=== PATIENT | female | born 1930 | race Hispanic/Latino ===

== ENCOUNTER 2017-06-09 07:06 | Emergency (ER) | payer MEDICARE, OTHER ==
[2017-06-09 07:12] VITALS: BP 142/73; PULSE 81; RESP 16; TEMP 96; O2SAT 100
[2017-06-09 07:13] VITALS: BMI 23.4
[2017-06-09] MEDS ORDERED: ceFAZolin IV 1 gm in Dextrose 1 GM/50 ML BAG IVPB ONE (07:42)
--- NOTE | 2017-06-09 07:46 | ED PDOC ---
HPI: Skin/Bite Injury Time Seen by Provider: 06/09/17 07:21 Chief Complaint (Nursing): Breast Problem Chief Complaint (Provider): Left Breast Bleeding History Per: Family (patient's daughter) History/Exam Limitations: no limitations Current Symptoms Are (Timing): Still Present Additional Complaint(s): Jacque Bowers is an 87 year old female that was diagnosed with breast cancer in December 2016 for which she is not undergoing any treatment that presents to the ED with a chief complaint of bleeding from her left breast that began this morning, as reported by the patient's daughter. Patient denies history of trauma or any other complaints. Past Medical History Reviewed: Historical Data, Nursing Documentation, Vital Signs Vital Signs: Last Vital Signs Temp 96.0 F L 06/09/17 07:11 Pulse 81 06/09/17 07:11 Resp 16 06/09/17 07:11 BP 142/73 06/09/17 07:11 Pulse Ox 100 06/09/17 11:22 - Medical History PMH: Anxiety, Arthritis, Atrial Fibrillation, Dementia, Depression, Gall Bladder Disease, GERD, Pneumonia Other PMH: Breast CA - Surgical History Surgical History: Cholecystectomy - Family History Family History: States: Unknown Family Hx - Immunization History Hx Tetanus Toxoid Vaccination: No Hx Influenza Vaccination: No Hx Pneumococcal Vaccination: No - Home Medications Home Medications: Ambulatory Orders Medication Instructions Recorded LORazepam [Ativan] 1 mg PO TID 09/12/16 Memantine [Namenda] 10 mg PO DAILY 09/12/16 Omeprazole Magnesium [Prilosec] 20 mg PO DAILY 09/12/16 Sertraline HCl [Zoloft] 25 mg PO DAILY 09/12/16 [id number] CD [Cardizem CD] 240 mg PO DAILY 09/12/16 Cephalexin [cephalexin] 500 mg PO QID #28 cap 06/09/17 - Allergies Allergies/Adverse Reactions: Allergies Allergy/AdvReac Type Severity Reaction Status Date / Time codeine Allergy NAUSEA Verified 06/09/17 07:27 flu vaccine Allergy COUGH Uncoded 04/13/16 10:24 Review of Systems Skin: Positive for: Other (bleeding from left breast) Physical Exam - Reviewed Nursing Documentation Reviewed: Yes Vital Signs Reviewed: Yes - Physical Exam Appears: Positive for: Non-toxic, No Acute Distress Head Exam: Positive for: ATRAUMATIC, NORMOCEPHALIC Skin: Positive for: Normal Color, Warm Eye Exam: Positive for: Normal appearance, EOMI, PERRL Cardiovascular/Chest: Positive for: Regular Rate, Rhythm, Other (Patient has orange-sized tumor, medial left breast. 2x2 open area wound, no active bleeding. ). Negative for: Murmur Respiratory: Positive for: Normal Breath Sounds. Negative for: Wheezing Gastrointestinal/Abdominal: Positive for: Normal Exam, Soft. Negative for: Tenderness Back: Positive for: Normal Inspection Extremity: Positive for: Normal ROM. Negative for: Deformity, Swelling Neurologic/Psych: Positive for: Alert, Oriented (x0, patient's family member says this is normal for the patient). Negative for: Motor/Sensory Deficits - Laboratory Results Result Diagrams: 06/09/17 07:40 06/09/17 07:40 - ECG O2 Sat by Pulse Oximetry: 100 (RA) Pulse Ox Interpretation: Normal Medical Decision Making Medical Decision Making: Impression: Left Breast Hematoma Plan: * Ancef 1gm/100 mL NS * CMP * CBC * Blood Culture * Reevaluation 9:30 Patient is complaining of lower back pain, X-Ray Lumbar Spine ordered. Lumbar Spine X-Ray FINDINGS: BONES: Normal alignment. No listhesis. No fracture. DISC SPACES: Gross facet joint degenerative changes are appreciated manifest by diffuse advanced multilevel spondylosis and endplate sclerosis throughout the lumbar spine including vacuum disc changes at L1-2. Send does advised identified T12- L1. OTHER FINDINGS: None. 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 Scribe Attestation: Documented by Calli Guillen, acting as a scribe for Kya Damon MD. Provider Scribe Attestation: All medical record entries made by the Scribe were at my direction and personally dictated by me. I have reviewed the chart and agree that the record accurately reflects my personal performance of the history, physical exam, medical decision making, and the department course for this patient. I have also personally directed, reviewed, and agree with the discharge instructions and disposition. Disposition - Clinical Impression Clinical Impression: Malignant tumor of breast, Back injury - Disposition Referrals: David Diez MD [Staff Provider] - Disposition: Routine/Home Disposition Time: 11:57 Condition: STABLE Prescriptions: Cephalexin [cephalexin] 500 mg PO QID #28 cap Instructions: Breast Cancer in Women (DC), Back Pain (ED) Forms: [facility] (Welsh)
[2017-06-09] MEDS: ceFAZolin IV 1 gm in Dextrose 1 GM/50 ML BAG IVPB STA (07:57)
[2017-06-09 08:00] LABS: BASO % 0.7 % (0.0-2.0); EOS # 0.1 K/uL (0.0-0.7); EOS % 1.1 % (0.0-4.0); HEMATOCRIT 36.8 % (34.0-47.0); LYMPH # 1.3 K/uL (1.0-4.3); LYMPH % 18.8 % (20.0-40.0); MEAN CELL VOLUME 94.5 fl (81.0-99.0); MEAN CORPUSCULAR HEMOGLOBIN 32.1 pg (27.0-31.0); MEAN PLATELET VOLUME 9.4 fl (7.2-11.7); MONO # 0.8 K/uL (0.0-0.8); MONO % 12.1 % (0.0-10.0); NEUT # 4.6 K/uL (1.8-7.0); NEUT % 67.3 % (50.0-75.0); WHITE BLOOD COUNT 6.9 K/uL (4.8-10.8)
[2017-06-09 08:09] LABS: ALB/GLOB RATIO 1.4 (1.0-2.1); ALKALINE PHOSPHATASE 121 U/L (38-126); ALT/SGPT 36 U/L (9-52); AST/SGOT 18 U/L (14-36); BILIRUBIN,TOTAL 0.6 mg/dl (0.2-1.3); BLOOD UREA NITROGEN 13 mg/dl (7-17); CALCIUM 9.3 mg/dL (8.4-10.2); CARBON DIOXIDE 26 mmol/L (22-30); CHLORIDE 106 mmol/L (98-107); GFR AFRICAN-AMERICAN > 60; GLUCOSE,RANDOM 100 mg/dL (65-105); POTASSIUM 4.1 MMOL/L (3.6-5.0); SODIUM 140 mmol/l (132-148); TOTAL PROTEIN 6.8 G/DL (6.3-8.2)
--- NOTE | 2017-06-09 11:10 | RAD ---
PROCEDURE: Radiographs of the Lumbar Spine. HISTORY: Low back pain COMPARISON: No prior. FINDINGS: BONES: Normal alignment. No listhesis. No fracture. DISC SPACES: Gross facet joint degenerative changes are appreciated manifest by diffuse advanced multilevel spondylosis and endplate sclerosis throughout the lumbar spine including vacuum disc changes at L1-2. Send does advised identified T12-L1. OTHER FINDINGS: None. 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
== END 2017-06-09 12:14 | disposition home or self-care (01) ==
LOC: H.ER 07:06
DX: C50.919 Malignant neoplasm of unspecified site of unspecified female breast (principal); S39.92XA Unspecified injury of lower back, initial encounter; F03.90 Unspecified dementia, unspecified severity, without behavioral disturbance, psychotic disturbance, mood disturbance, and anxiety; M51.36 Other intervertebral disc degeneration, lumbar region; Z85.3 Personal history of malignant neoplasm of breast
CPT/HCPCS: 72114; 80053; 85025; 87040; 96365; 99283; J0690

== ENCOUNTER 2017-07-10 15:08 | Emergency (ER) | payer MEDICARE, OTHER ==
[2017-07-10 15:09] VITALS: BMI 23.4
[2017-07-10 15:15] VITALS: BP 148/73; PULSE 82; TEMP 98; O2SAT 99
[2017-07-10 16:52] LABS: HEMATOCRIT 32.8 % (34.0-47.0); MEAN CELL VOLUME 95.5 fl (81.0-99.0); MEAN CORPUSCULAR HEMOGLOBIN 31.9 pg (27.0-31.0); MEAN CORPUSCULAR HGB CONC 33.4 g/dL (33.0-37.0); RED CELL DISTRIBUTION WIDTH 12.9 % (11.5-14.5); WHITE BLOOD COUNT 8.9 K/uL (4.8-10.8)
[2017-07-10 17:01] LABS: ALKALINE PHOSPHATASE 113 U/L (38-126); ALT/SGPT 28 U/L (9-52); AST/SGOT 16 U/L (14-36); BILIRUBIN,TOTAL 0.4 mg/dl (0.2-1.3); BLOOD UREA NITROGEN 20 mg/dl (7-17); CALCIUM 8.9 mg/dL (8.4-10.2); CARBON DIOXIDE 26 mmol/L (22-30); CHLORIDE 104 mmol/L (98-107); GFR AFRICAN-AMERICAN > 60; GLUCOSE,RANDOM 108 mg/dL (65-105); POTASSIUM 3.7 MMOL/L (3.6-5.0); SODIUM 138 mmol/l (132-148); TOTAL PROTEIN 6.2 G/DL (6.3-8.2)
[2017-07-10 17:08] LABS: ALB/GLOB RATIO 1.3 (1.0-2.1)
[2017-07-10 17:27] LABS: PARTIAL THROMBOPLASTIN TIME 28.3 Seconds (25.6-37.1)
--- NOTE | 2017-07-10 17:44 | ED PDOC ---
HPI: Wound Care - HPI Time Seen by Provider: 07/10/17 15:26 Chief Complaint (Nursing): Wound Check Chief Complaint (Provider): Bleeding, left breast History Per: Patient, Family Exam Limitations: no limitations Severity: None Additional Complaint(s): Pt has left breast CA. Pt has open wound on left breast over tumor. Pt states it began to bleed today. Daugher states she puts dressing over area but patient scratches area on occasion. Pt is not receiving treatment for breast CA and PMD is Dr. Contreras. Pt was told to come to ER for antibiotics if wound ever bleed. Past Medical History Reviewed: Historical Data, Nursing Documentation, Vital Signs Vital Signs: Last Vital Signs Temp 98.0 F 07/10/17 15:13 Pulse 82 07/10/17 15:13 Resp 16 07/10/17 15:13 BP 148/73 07/10/17 15:13 Pulse Ox 99 07/10/17 15:13 - Medical History PMH: Anxiety, Arthritis, Atrial Fibrillation, Dementia, Depression, Gall Bladder Disease, GERD, Pneumonia - Surgical History Surgical History: Cholecystectomy - Family History Family History: States: Unknown Family Hx - Immunization History Hx Tetanus Toxoid Vaccination: No Hx Influenza Vaccination: No Hx Pneumococcal Vaccination: No - Home Medications Home Medications: Ambulatory Orders Medication Instructions Recorded LORazepam [Ativan] 1 mg PO TID 09/12/16 Memantine [Namenda] 10 mg PO DAILY 09/12/16 Omeprazole Magnesium [Prilosec] 20 mg PO DAILY 09/12/16 Sertraline HCl [Zoloft] 25 mg PO DAILY 09/12/16 diltiaZEM CD [Cardizem CD] 240 mg PO DAILY 09/12/16 Cephalexin [cephalexin] 500 mg PO QID #28 cap 06/09/17 Cephalexin [Keflex] 500 mg PO QID #28 capsule 07/10/17 - Allergies Allergies/Adverse Reactions: Allergies Allergy/AdvReac Type Severity Reaction Status Date / Time codeine Allergy NAUSEA Verified 07/10/17 15:12 flu vaccine Allergy COUGH Uncoded 07/10/17 15:12 Review of Systems ROS Statement: Except As Marked, All Systems Reviewed And Found Negative Constitutional: Negative for: Fever, Chills Skin: Positive for: Other Physical Exam - Reviewed Nursing Documentation Reviewed: Yes Vital Signs Reviewed: Yes - Physical Exam Appears: Positive for: Well, Non-toxic, No Acute Distress Head Exam: Positive for: ATRAUMATIC, NORMAL INSPECTION, NORMOCEPHALIC Skin: Positive for: Warm. Negative for: Normal Color (9 cm mass, left breast with open skin approx 3 cm in diameter. No bleeding. ) Eye Exam: Positive for: Normal appearance ENT: Positive for: Normal ENT Inspection Neck: Positive for: Normal, Painless ROM Cardiovascular/Chest: Positive for: Regular Rate, Rhythm Respiratory: Positive for: Normal Breath Sounds. Negative for: Accessory Muscle Use Back: Positive for: Normal Inspection Extremity: Positive for: Normal ROM Neurologic/Psych: Positive for: Alert, Oriented - Laboratory Results Result Diagrams: 07/10/17 16:47 07/10/17 16:47 - ECG O2 Sat by Pulse Oximetry: 99 Medical Decision Making Medical Decision Making: Wound irrigated, antibiotic ointment applied with dressing. Disposition - Clinical Impression Clinical Impression: Encounter for evaluation of wound, Breast CA - Patient ED Disposition Is Patient to be Admitted: No Counseled Patient/Family Regarding: Diagnosis, Need For Followup, Rx Given - Disposition Referrals: [facility] [Outside] [facility] [Outside] Disposition: Routine/Home Disposition Time: 17:43 Condition: GOOD Prescriptions: Cephalexin [Keflex] 500 mg PO QID #28 capsule Instructions: Chronic Wound Care (ED)
[2017-07-10 18:06] VITALS: RESP 18
== END 2017-07-10 18:02 | disposition home or self-care (01) ==
LOC: H.ER 15:08
DX: Z48.00 Encounter for change or removal of nonsurgical wound dressing (principal); C50.919 Malignant neoplasm of unspecified site of unspecified female breast; F03.90 Unspecified dementia, unspecified severity, without behavioral disturbance, psychotic disturbance, mood disturbance, and anxiety; F32.9 Major depressive disorder, single episode, unspecified; F41.9 Anxiety disorder, unspecified; I48.91 Unspecified atrial fibrillation; K21.9 Gastro-esophageal reflux disease without esophagitis

== ENCOUNTER 2017-12-25 20:05 | Observation (INO) | payer OTHER ==
[2017-12-25 20:05] VITALS: BMI 23.4
[2017-12-25] MEDS ORDERED: Sodium Chloride 0.9% 500 ML IV STA (20:34)
--- NOTE | 2017-12-25 20:41 | ED PDOC ---
HPI: General Adult Time Seen by Provider: 12/25/17 20:15 Chief Complaint (Nursing): Wound Check Chief Complaint (Provider): bleeding from tumor History Per: Patient, Family History/Exam Limitations: no limitations Onset/Duration Of Symptoms: Days Additional History Per: Patient Additional Complaint(s): Pt. with a large open breast tumor on the left breast. Is not getting any treatment for it. Got bleeding from it sporadically today so came to the ER. Has bleed multiple times in the past. Last visit to the ER for it, they dressed the wound and she got antibiotics for it. Has mild pain to site, but not new. No chest pain, dyspnea, weakness, dizziness, abd pain. Past Medical History Reviewed: Nursing Documentation, Vital Signs Vital Signs: Last Vital Signs Temp 98.9 F 12/25/17 23:08 Pulse 82 12/25/17 23:08 Resp 18 12/25/17 23:08 BP 114/81 12/25/17 23:08 Pulse Ox 100 12/25/17 23:08 - Medical History PMH: Alzheimer's Disease, Anxiety, Arthritis, Atrial Fibrillation, Dementia, Depression, Gall Bladder Disease, GERD, Pneumonia - Surgical History Surgical History: Cholecystectomy Other surgeries: large breast mass/tumor that is open on left. - Family History Family History: States: Unknown Family Hx - Living Arrangements Living Arrangements: With Family - Immunization History Hx Tetanus Toxoid Vaccination: No Hx Influenza Vaccination: No Hx Pneumococcal Vaccination: No - Home Medications Home Medications: Ambulatory Orders Medication Instructions Recorded LORazepam [Ativan] 1 mg PO TID 09/12/16 Memantine [Namenda] 10 mg PO DAILY 09/12/16 Omeprazole Magnesium [Prilosec] 20 mg PO DAILY 09/12/16 Sertraline HCl [Zoloft] 25 mg PO DAILY 09/12/16 diltiaZEM CD [Cardizem CD] 240 mg PO DAILY 09/12/16 Cephalexin [cephalexin] 500 mg PO QID #28 cap 06/09/17 Cephalexin [Keflex] 500 mg PO QID #28 capsule 07/10/17 - Allergies Allergies/Adverse Reactions: Allergies Allergy/AdvReac Type Severity Reaction Status Date / Time codeine Allergy NAUSEA Verified 07/10/17 15:12 flu vaccine Allergy COUGH Uncoded 07/10/17 15:12 Review of Systems ROS Statement: Except As Marked, All Systems Reviewed And Found Negative Skin: Positive for: Lesions (left breast) Physical Exam - Reviewed Nursing Documentation Reviewed: Yes Vital Signs Reviewed: Yes - Physical Exam Appears: Positive for: Non-toxic, No Acute Distress Head Exam: Positive for: ATRAUMATIC, NORMAL INSPECTION, NORMOCEPHALIC Skin: Positive for: Normal Color, Warm, DRY Eye Exam: Positive for: EOMI, Normal appearance, PERRL ENT: Positive for: Normal ENT Inspection Neck: Positive for: Normal, Painless ROM Cardiovascular/Chest: Positive for: Regular Rate, Rhythm, Other (9 cm mass, left breast with open skin approx 3 cm in diameter. No bleeding. ) Respiratory: Positive for: CNT, Normal Breath Sounds Gastrointestinal/Abdominal: Positive for: Normal Exam, Soft. Negative for: Tenderness Back: Positive for: Normal Inspection Extremity: Positive for: Normal ROM. Negative for: Tenderness Neurologic/Psych: Positive for: Alert, Oriented - Laboratory Results Result Diagrams: 12/25/17 20:59 12/25/17 20:59 Interpretation Of Abn Labs: 7.6 hg - ECG O2 Sat by Pulse Oximetry: 100 Pulse Ox Interpretation: Normal - Progress ED Course And Treament: 2329: Spoke with Dr. Hernadez. Will admit and give further orders when pt. reaches floor. Hg drop significantly since last visits. Will transfuse 2 units PRBCs. AAOx3. Pain free. Disposition - Clinical Impression Clinical Impression: Anemia - Patient ED Disposition Is Patient to be Admitted: No Counseled Patient/Family Regarding: Studies Performed, Diagnosis - Disposition Disposition Time: 23:00 Condition: FAIR - Pt Status Changed To: Hospital Disposition Of: Observation - POA Present On Arrival: None
[2017-12-25 21:02] LABS: BASO % 0.2 % (0.0-2.0); EOS % 0.1 % (0.0-4.0); HEMOGLOBIN 7.6 g/dL (12.0-16.0); LYMPH # 1.5 K/uL (1.0-4.3); LYMPH % 16.1 % (20.0-40.0); MEAN CELL VOLUME 76.6 fl (81.0-99.0); MEAN CORPUSCULAR HEMOGLOBIN 24.3 pg (27.0-31.0); MEAN CORPUSCULAR HGB CONC 31.7 g/dL (33.0-37.0); MEAN PLATELET VOLUME 9.3 fl (7.2-11.7); MONO # 1.1 K/uL (0.0-0.8); MONO % 11.4 % (0.0-10.0); NEUT # 6.9 K/uL (1.8-7.0); NEUT % 72.2 % (50.0-75.0); RBC 3.14 Mil/uL (3.80-5.20); RED CELL DISTRIBUTION WIDTH 20.1 % (11.5-14.5); WHITE BLOOD COUNT 9.5 K/uL (4.8-10.8)
[2017-12-25 21:12] LABS: BLOOD UREA NITROGEN 21 mg/dl (7-17); GFR AFRICAN-AMERICAN > 60; GFR NON-AFRICAN AMERICAN > 60
[2017-12-25 21:34] LABS: PARTIAL THROMBOPLASTIN TIME 22.7 Seconds (25.6-37.1); PROTHROMBIN TIME 11.5 Seconds (9.8-13.1)
[2017-12-26] MEDS ORDERED: Apap-Butalbital-Caffeine 325-50-40mg Tab PO ONE (08:08)
[2017-12-26] MEDS ORDERED: Apap-Butalbital-Caffeine 325-50-40mg Tab ONE (08:20)
--- NOTE | 2017-12-26 11:29 | CP.PCM.HP ---
History of Present Illness - History of Present Illness History of Present Illness: CC: bleed from breast mass HPI: 87 y/o woman w/ pmh of Alzheimer's dementia, afib, and breast tumor presents to the ED for acute bleed. Patient is poor historian. Daughter at bedside provides history. Patient has left breast mass that started to bleed yesterday. Patient has had recurrent bleeds in the past from the same mass but has not had any treatment for it. Patient has no complaints and denies headaches, chest pain, SOB, abdominal pain, nausea, vomiting, diarrhea, dysuria , or fever. PMD: Dr. Contreras PMH: Alzheimer's dementia, afib, and breast tumor meds: see med list allergies: codeine, flu vaccine PSH: cholecystectomy Fam: non-contributory SOC: denies smoking, alcohol, and drugs ROS: 12 points assessed and negative unless otherwise reported in HPI Present on Admission - Present on Admission Any Indicators Present on Admission: No History of DVT/PE: No History of Uncontrolled Diabetes: No Urinary Catheter: No Decubitus Ulcer Present: No Review of Systems - Review of Systems All systems: reviewed and no additional remarkable complaints except - Constitutional Constitutional: absent: Chills, Fever - EENT Eyes: absent: Change in Vision - Cardiovascular Cardiovascular: absent: Chest Pain - Respiratory Respiratory: absent: Dyspnea - Gastrointestinal Gastrointestinal: absent: Abdominal Pain, Diarrhea, Nausea, Vomiting - Genitourinary Genitourinary: absent: Dysuria - Integumentary Integumentary: As Per HPI, Bleeding Lesions - Neurological Neurological: absent: Dizziness, Headaches Past Patient History - Infectious Disease Hx of Infectious Diseases: None - Past Social History Smoking Status: Never Smoked - CARDIAC Hx Cardiac Disorders: Yes (AFIB) - PULMONARY Hx Respiratory Disorders: Yes (PNA) - NEUROLOGICAL Hx Neurological Disorder: Yes (ALZHEIMER) - HEENT Hx HEENT Problems: No - RENAL Hx Chronic Kidney Disease: No - ENDOCRINE/METABOLIC Hx Endocrine Disorders: No - HEMATOLOGICAL/ONCOLOGICAL Hx Blood Disorders: Yes (ANEMIA) - INTEGUMENTARY Hx Dermatological Problems: No - MUSCULOSKELETAL/RHEUMATOLOGICAL Hx Musculoskeletal Disorders: Yes (ARTHRITIS) - GASTROINTESTINAL Hx Gall Bladder Disease: Yes - GENITOURINARY/GYNECOLOGICAL Hx Genitourinary Disorders: No - PSYCHIATRIC Hx Psychophysiologic Disorder: Yes (ANX,DEPRESSION) - SURGICAL HISTORY Hx Cholecystectomy: Yes - ANESTHESIA Hx Anesthesia: Yes Hx Anesthesia Reactions: No Hx Malignant Hyperthermia: No Meds Home Medications: Home Medication List Medication Instructions Recorded Confirmed Type ALPRAZolam [Xanax] 0.25 mg PO Q12 PRN #20 tab 12/26/17 Rx Allergies/Adverse Reactions: Allergies Allergy/AdvReac Type Severity Reaction Status Date / Time codeine Allergy NAUSEA Verified 07/10/17 15:12 flu vaccine Allergy COUGH Uncoded 07/10/17 15:12 Physical Exam - Constitutional Appears: Non-toxic, No Acute Distress - Head Exam Head Exam: ATRAUMATIC, NORMAL INSPECTION, NORMOCEPHALIC - Eye Exam Eye Exam: Normal appearance - ENT Exam ENT Exam: Mucous Membranes Moist - Neck Exam Neck exam: Positive for: Full Rom. Negative for: Tenderness - Respiratory Exam Respiratory Exam: Clear to Auscultation Bilateral. absent: Accessory Muscle Use , Decreased Breath Sounds, Rales, Rhonchi, Wheezes, Respiratory Distress - Cardiovascular Exam Cardiovascular Exam: REGULAR RHYTHM, RRR. absent: Tachycardia - GI/Abdominal Exam GI & Abdominal Exam: Normal Bowel Sounds, Soft. absent: Distended, Tenderness - Neurological Exam Neurological exam: Alert - Skin Additional comments: large left breast mass, no longer bleeding Results - Vital Signs Recent Vital Signs: Last Vital Signs Temp 98 F 12/26/17 09:09 Pulse 97 H 12/26/17 09:09 Resp 20 12/26/17 09:09 BP 129/62 12/26/17 09:09 Pulse Ox 99 12/26/17 08:30 - Labs Result Diagrams: 12/25/17 20:59 12/25/17 20:59 Labs: Laboratory Results - last 24 hr 12/25/17 12/25/17 12/25/17 20:59 20:59 20:59 WBC 9.5 RBC 3.14 L Hgb 7.6 L D Hct 24.0 L MCV 76.6 L D MCH 24.3 L MCHC 31.7 L RDW 20.1 H Plt Count 230 MPV 9.3 Neut % (Auto) 72.2 Lymph % (Auto) 16.1 L [place] % (Auto) 11.4 H Eos % (Auto) 0.1 Baso % (Auto) 0.2 Neut # (Auto) 6.9 Lymph # (Auto) 1.5 [place] # (Auto) 1.1 H Eos # (Auto) 0.0 Baso # (Auto) 0.0 PT 11.5 INR 1.0 APTT 22.7 L Sodium 138 Potassium 3.9 Chloride 103 Carbon Dioxide 27 Anion Gap 12 BUN 21 H Creatinine 0.7 Est GFR ( Amer) > 60 Est GFR (Non-Af Amer) > 60 Random Glucose 116 H Calcium 9.0 Blood Type Blood Type Confirm Antibody Screen Crossmatch BBK History Checked 12/25/17 12/26/17 23:26 00:10 WBC RBC Hgb Hct MCV MCH MCHC RDW Plt Count MPV Neut % (Auto) Lymph % (Auto) [place] % (Auto) Eos % (Auto) Baso % (Auto) Neut # (Auto) Lymph # (Auto) [place] # (Auto) Eos # (Auto) Baso # (Auto) PT INR APTT Sodium Potassium Chloride Carbon Dioxide Anion Gap BUN Creatinine Est GFR ( Amer) Est GFR (Non-Af Amer) Random Glucose Calcium Blood Type O POSITIVE Blood Type Confirm O POSITIVE Antibody Screen Negative Crossmatch See Detail BBK History Checked No verified bt Assessment & Plan (1) Acute anemia Status: Acute (2) Breast mass, left Status: Chronic (3) Dementia Status: Chronic (4) Alzheimer disease Status: Chronic - Assessment and Plan (Free Text) Plan: afebrile, non-tachycardic, normotensive s/p 1 unit PRBC receiving 2nd unit PRBC family declines further work up other than transfusion daughter reports she will follow up w/ heme/onc and surgery for left breast mass removal for patient dispo: DC home after completion of 2nd unit PRBC and observation for transfusion reaction, follow up PMD in 1 week, follow up heme/onc and surgery in 1-2 weeks Addendum Addendum: 12/26/17 13:51 Patient is DC'ed to home given script for xanax 0.25 mg PO BID patient to follow up w/ PMD, heme/onc, and surgery in 1-2 weeks
[2017-12-26] MEDS ORDERED: Pneumococcal 23-Valent Vaccine IM ONE (11:34)
[2017-12-26 12:32] VITALS: O2SAT 96
[2017-12-26 14:34] VITALS: BP 130/70; PULSE 99; RESP 20; TEMP 98
--- NOTE | 2017-12-26 16:20 | CARD ---
APPROVED REPORT EKG Measurement Heart [id number] <Conclusion> Atrial fibrillation ST & T wave abnormality, consider inferior ischemia Abnormal ECG
== END 2017-12-26 14:30 | disposition home or self-care (01) ==
LOC: H.ER 20:05 → H.ERHOLD 23:25 → H.ICU/CCU 12-26 09:16
PROVIDERS: ADMIT Family Medicine; ATTEND Family Medicine
DX: D64.9 Anemia, unspecified (principal); G30.9 Alzheimer's disease, unspecified; F02.80 Dementia in other diseases classified elsewhere, unspecified severity, without behavioral disturbance, psychotic disturbance, mood disturbance, and anxiety; F41.9 Anxiety disorder, unspecified; I48.91 Unspecified atrial fibrillation; F32.9 Major depressive disorder, single episode, unspecified; K21.9 Gastro-esophageal reflux disease without esophagitis; Z87.01 Personal history of pneumonia (recurrent); Z90.49 Acquired absence of other specified parts of digestive tract; N63.0 Unspecified lump in unspecified breast; Z23 Encounter for immunization
CPT/HCPCS: 36430; 80048; 85025; 85610; 85730; 86850; 86900; 86920; 87081; 90732; 93005; 96360; 96361; 96372; 99285; G0009; G0378; J1630; J2060; J7040; P9051

== ENCOUNTER 2018-02-10 03:14 | Emergency (ER) | payer OTHER ==
[2018-02-10 03:15] VITALS: BMI 23.4
[2018-02-10 03:19] VITALS: BP 131/65; PULSE 79; RESP 18; TEMP 97.8; O2SAT 97
--- NOTE | 2018-02-10 03:55 | ED PDOC ---
HPI: Wound Care - HPI Time Seen by Provider: 02/10/18 03:27 Chief Complaint (Nursing): Wound Check Chief Complaint (Provider): Wound Check History Per: Patient Exam Limitations: no limitations Onset/Duration Of Symptoms: Days (x4) Current Symptoms Are (Timing): Still Present Additional Complaint(s): 87 y/o female with a PMHx of breast cancer presents to the ED for a wound check s/p mastectomy. Patient states she had a mastectomy done approximately 4 days ago. Daughter noticed increased blood accumulating in the drain and mild bleeding around entrance to the drain. Daughter is concerned because she had two blood transfusions recently. Denies pain, lightheadedness, and dizziness. PMD: None Provided Other Physician: EDWIN Past Medical History Reviewed: Historical Data, Nursing Documentation, Vital Signs Vital Signs: Last Vital Signs Temp 97.8 F 02/10/18 03:19 Pulse 79 02/10/18 03:19 Resp 18 02/10/18 03:19 BP 131/65 02/10/18 03:19 Pulse Ox 97 02/10/18 03:19 - Medical History PMH: Alzheimer's Disease, Anxiety, Arthritis, Atrial Fibrillation, Dementia, Depression, Gall Bladder Disease, GERD, Pneumonia Denies: HIV, Chronic Kidney Disease Other PMH: Breast Cancer - Surgical History Surgical History: Cholecystectomy Other surgeries: Mastectomy - Family History Family History: States: Unknown Family Hx - Immunization History Hx Tetanus Toxoid Vaccination: No Hx Influenza Vaccination: No Hx Pneumococcal Vaccination: No - Home Medications Home Medications: Ambulatory Orders Medication Instructions Recorded LORazepam [Ativan] 1 mg PO TID 09/12/16 Memantine [Namenda] 10 mg PO DAILY 09/12/16 diltiaZEM CD [Cardizem CD] 240 mg PO DAILY 09/12/16 Sertraline [Zoloft] 50 mg PO DAILY 12/25/17 traZODone [Desyrel] 50 mg PO HS 12/25/17 ALPRAZolam [Xanax] 0.25 mg PO Q12 PRN #20 tab 12/26/17 Sulfamethoxazole/Trimethoprim 1 tab PO BID #20 tab 02/10/18 [Bactrim DS 800 mg-160 mg] - Allergies Allergies/Adverse Reactions: Allergies Allergy/AdvReac Type Severity Reaction Status Date / Time codeine Allergy NAUSEA Verified 07/10/17 15:12 flu vaccine Allergy COUGH Uncoded 07/10/17 15:12 Review of Systems ROS Statement: Except As Marked, All Systems Reviewed And Found Negative Constitutional: Positive for: Other (wound check s/p mastectomy) Neurological: Negative for: Dizziness (lightheadedness) Physical Exam - Reviewed Nursing Documentation Reviewed: Yes Vital Signs Reviewed: Yes - Physical Exam Appears: Positive for: No Acute Distress Head Exam: Positive for: ATRAUMATIC, NORMOCEPHALIC Skin: Positive for: Normal Color, Warm, Dry Eye Exam: Positive for: Normal appearance, EOMI, PERRL Neck: Positive for: Normal, Painless ROM Cardiovascular/Chest: Positive for: Regular Rate, Rhythm, Other (Surgical drain at left mastectomy site. Has 25 CCs of blood around exit site of drain, small amount of bloody drainage. Site otherwise normal). Negative for: Murmur Respiratory: Positive for: Normal Breath Sounds. Negative for: Respiratory Distress Gastrointestinal/Abdominal: Positive for: Normal Exam, Soft. Negative for: Tenderness Extremity: Positive for: Normal ROM. Negative for: Pedal Edema, Deformity Neurologic/Psych: Positive for: Alert, Oriented. Negative for: Motor/Sensory Deficits - Laboratory Results Result Diagrams: 02/10/18 04:21 - ECG O2 Sat by Pulse Oximetry: 97 (RA) Pulse Ox Interpretation: Normal Medical Decision Making Medical Decision Making: Time: 034 A/P: 87 y/o female with recent mastectomy presenting with increase bloody drainage from pouch. -- Patient is well appearing with normal vital signs. -- No signs or symptoms of anemia at this time. However, we will check CBC -- Likely patient will be referred back to [facility] for drain check on Sunday. 0700 Minimal drainage at this time, vitals normal, patient well appearing but urinating a lot, will endorse to Dr. Crespo pending urine studies. Scribe Attestation: Documented by Manfred Pierre acting as a scribe for Dr. Shelton Garcia MD. Provider Scribe Attestation: All medical record entries made by the Scribe were at my direction and personally dictated by me. I have reviewed the chart and agree that the record accurately reflects my personal performance of the history, physical exam, medical decision making, and the department course for this patient. I have also personally directed, reviewed, and agree with the discharge instructions and disposition. Disposition - Clinical Impression Clinical Impression: UTI (urinary tract infection) - Disposition Referrals: [facility] [Outside] Disposition: Transfer of Care Disposition Time: 07:00 Condition: FAIR Prescriptions: Sulfamethoxazole/Trimethoprim [Bactrim DS 800 mg-160 mg] 1 tab PO BID #20 tab Instructions: Urinary Tract Infections in Adults Forms: [facility] (Congolese) Patient Signed Over To: Anderson Crespo Handoff Comments: pending urine studies
[2018-02-10 04:36] LABS: HEMOGLOBIN 10.8 g/dL (12.0-16.0); MEAN CELL VOLUME 79.3 fl (81.0-99.0); MEAN CORPUSCULAR HEMOGLOBIN 25.5 pg (27.0-31.0); MEAN CORPUSCULAR HGB CONC 32.1 g/dL (33.0-37.0); RBC 4.23 Mil/uL (3.80-5.20); RED CELL DISTRIBUTION WIDTH 18.9 % (11.5-14.5); WHITE BLOOD COUNT 13.8 K/uL (4.8-10.8)
--- NOTE | 2018-02-10 07:43 | ED PDOC ---
- Laboratory Results Result Diagrams: 02/10/18 04:21 - ECG O2 Sat by Pulse Oximetry: 97 (RA) Medical Decision Making Medical Decision Making: Time: 07:00 Patient care endorsed from Dr. Garcia to Dr. Crespo pending urinalysis, reevaluation, and final disposition. Scribe Attestation: Documented by Jerzy Vidal, acting as a scribe for Anderson Crespo MD. Provider Scribe Attestation: All medical record entries made by the Scribe were at my direction and personally dictated by me. I have reviewed the chart and agree that the record accurately reflects my personal performance of the history, physical exam, medical decision making, and the department course for this patient. I have also personally directed, reviewed, and agree with the discharge instructions and disposition. Disposition - Clinical Impression Clinical Impression: UTI (urinary tract infection) - POA Present On Arrival: None - Disposition Referrals: [facility] [Outside] Disposition: Routine/Home Disposition Time: 08:11 Condition: FAIR Prescriptions: Sulfamethoxazole/Trimethoprim [Bactrim DS 800 mg-160 mg] 1 tab PO BID #20 tab Instructions: Urinary Tract Infections in Adults Forms: LEYIO (Armenian)
== END 2018-02-10 09:56 | disposition home or self-care (01) ==
LOC: H.ER 03:14
DX: Z48.89 Encounter for other specified surgical aftercare (principal); N39.0 Urinary tract infection, site not specified; F02.80 Dementia in other diseases classified elsewhere, unspecified severity, without behavioral disturbance, psychotic disturbance, mood disturbance, and anxiety; G30.9 Alzheimer's disease, unspecified; Z85.3 Personal history of malignant neoplasm of breast